=== PATIENT | female | born 1970 | race Caucasian/White ===

== ENCOUNTER 2017-10-09 08:56 | Day surgery (SDC) | payer BC, OTHER ==
[2017-10-05 10:11] LABS: HEMOGLOBIN 13.1 g/dL (12.0-15.5); MEAN CORPUSCULAR HEMOGLOBIN 28.8 pg (27.0-33.4); MEAN CORPUSCULAR HGB CONC 33.7 g/dL (32.0-36.0); MEAN CORPUSCULAR VOLUME 86 fl (80-97); PLATELET COUNT 204 10^3/uL (150-450); RED BLOOD COUNT 4.55 10^6/uL (3.72-5.28); RED CELL DISTRIBUTION WIDTH 13.6 % (11.5-14.0); WHITE BLOOD COUNT 3.8 10^3/uL (4.0-10.5)
[2017-10-05 10:12] LABS: APPEARANCE,URINE SLIGHTLY-CLOUDY; BILIRUBIN,URINE NEGATIVE (NEGATIVE); COLOR,URINE YELLOW; GLUCOSE, URINE NEGATIVE (NEGATIVE); KETONES,URINE NEGATIVE (NEGATIVE); LEUKOCYTE ESTERASE,URINE NEGATIVE (NEGATIVE); NITRITE,URINE NEGATIVE (NEGATIVE); PROTEIN,URINE NEGATIVE (NEGATIVE); URINE SPECIFIC GRAVITY 1.014; UROBILINOGEN,URINE NEGATIVE mg/dL (<2.0)
[2017-10-05 10:18] LABS: INTERNATIONAL RATION (INR) 0.91; PROTHROMBIN TIME 12.9 SEC (11.4-15.4)
[2017-10-05 10:19] LABS: PARTIAL THROMBOPLASTIN TIME 41.1 SEC (23.5-35.8)
--- NOTE | 2017-10-05 10:57 | RADIOLOGY REPORT (SQ) ---
EXAM DESCRIPTION: CHEST PA/LATERAL COMPLETED DATE/TIME: 10/05/2017 10:36 am REASON FOR STUDY: PRE OP COMPARISON: None. EXAM PARAMETERS: NUMBER OF VIEWS: two views TECHNIQUE: Digital Frontal and Lateral radiographic views of the chest acquired. RADIATION DOSE: NA LIMITATIONS: none FINDINGS: LUNGS AND PLEURA: No opacities, masses or pneumothorax. No pleural effusion. MEDIASTINUM AND HILAR STRUCTURES: No masses or contour abnormalities. HEART AND VASCULAR STRUCTURES: Heart normal size. No evidence for failure. BONES: No acute findings. HARDWARE: None in the chest. OTHER: Lap band. IMPRESSION: NO SIGNIFICANT RADIOGRAPHIC FINDING IN THE CHEST. TECHNICAL DOCUMENTATION: JOB ID: [id number] [employer]- All Rights Reserved
--- NOTE | 2017-10-05 10:59 | EKG REPORT ---
SEVERITY:- NORMAL ECG - SINUS RHYTHM : Confirmed by: Casey Preston 05-Oct-2017 10:58:19
[~2017-10-09 08:56] MED LIST: CLINDAMYCIN 600 MG/D5W RTU 600 MG/50 ML RTUPB IV PRN; LACTATED RINGERS 1000 ML IV PRN; LIDOCAINE 0.5% INJ-PF (5 MG/ML) 50 ML SDV SUBCUT PRN
[2017-10-09] MEDS ORDERED: ALBUTEROL SULFATE 0.083% NEB 2.5 MG/3 ML AMPUL NEB ONE (09:28)
[2017-10-09] MEDS ORDERED: CITRIC ACID/SODIUM CITRATE ORAL SOLN 15 ML UDCUP PO ONE (09:45)
[2017-10-09] MEDS ORDERED: LIDOCAINE 1% INJ-PF (10 MG/ML) 30 ML SDV ONE (09:58)
[2017-10-09] MEDS ORDERED: BUPIVACAINE HCL 0.5%-EPI 1:200000 INJ/PF 30 ML VIAL ONE (09:58)
[2017-10-09] MEDS ORDERED: FAMOTIDINE INJ/PF 20 MG/2 ML SDV IV ONE (10:00)
[2017-10-09] MEDS ORDERED: SODIUM BICARBONATE 10 ML IV ONE (10:00)
[2017-10-09] MEDS ORDERED: SCOPOLAMINE HYDROBROMIDE 1.5 MG PATCH.TD72 ONE (10:10)
[2017-10-09] MEDS ORDERED: MIDAZOLAM 2 MG/2 ML INJ ONE ×2 (10:45→10:52)
[2017-10-09] MEDS ORDERED: LIDOCAINE 2% INJ-PF (20 MG/ML) 10 ML AMPUL ONE (10:45)
[2017-10-09] MEDS ORDERED: KETAMINE HCL INJ 500 MG/10 ML VIAL ONE (10:45)
[2017-10-09] MEDS ORDERED: PROPOFOL INJ 200 MG/20 ML VIAL IV ONE (10:45)
[2017-10-09] MEDS ORDERED: FENTANYL CITRATE INJ/PF 100 MCG/2 ML AMPUL ONE (10:45)
[2017-10-09 15:02] VITALS: BP 105/50
== END 2017-10-09 12:25 | disposition home or self-care (01) ==
LOC: OROUT 08:56
PROVIDERS: ATTEND Pain Medicine Interventional Pain Medicine
DX: M50.13 Cervical disc disorder with radiculopathy, cervicothoracic region (principal); G89.4 Chronic pain syndrome; Z53.09 Procedure and treatment not carried out because of other contraindication; R05 Cough; M19.90 Unspecified osteoarthritis, unspecified site; E03.9 Hypothyroidism, unspecified; G43.909 Migraine, unspecified, not intractable, without status migrainosus; Z79.899 Other long term (current) drug therapy; Z88.0 Allergy status to penicillin; Z87.891 Personal history of nicotine dependence
CPT/HCPCS: 63685; 93005; 36415 ×2; 84132; 85027; 85610; 85730; 81001; 71046; 93010; 94640; J2250; J3490 ×5; J2704; S0028; 300; J3010

== ENCOUNTER 2017-11-06 09:12 | Day surgery (SDC) | payer OTHER ==
[2017-10-16 11:21] LABS: INTERNATIONAL RATION (INR) 0.92
[2017-10-16 11:22] LABS: PARTIAL THROMBOPLASTIN TIME 39.1 SEC (23.5-35.8)
[~2017-11-06 09:12] MED LIST changes: -LIDOCAINE 0.5% INJ-PF (5 MG/ML) 50 ML SDV SUBCUT PRN
[2017-11-06] MEDS ORDERED: SCOPOLAMINE HYDROBROMIDE 1.5 MG PATCH.TD72 ONE (09:38)
[2017-11-06] MEDS ORDERED: SODIUM BICARBONATE 8.4% INJ 50 MEQ/50 ML DISP.SYRIN ONE (10:07)
[2017-11-06] MEDS ORDERED: BUPIVACAINE HCL 0.5%-EPI 1:200000 INJ/PF 30 ML VIAL ONE (10:07)
[2017-11-06] MEDS ORDERED: LIDOCAINE 1% INJ-PF (10 MG/ML) 30 ML SDV ONE (10:07)
[2017-11-06] MEDS ORDERED: FENTANYL CITRATE INJ/PF 100 MCG/2 ML AMPUL ONE (11:12)
[2017-11-06] MEDS ORDERED: LIDOCAINE 2% INJ-PF (20 MG/ML) 10 ML AMPUL ONE (11:12)
[2017-11-06] MEDS ORDERED: PROPOFOL INJ 200 MG/20 ML VIAL IV ONE (11:12)
[2017-11-06] MEDS ORDERED: DIPHENHYDRAMINE HCL 50 MG/ML VIAL IV PRN (11:45)
[2017-11-06] MEDS ORDERED: OXYCODONE-ACETAMINOPHEN 5-325 MG TABLET PO PRN ×3 (11:45→13:46)
[2017-11-06] MEDS ORDERED: ONDANSETRON HCL INJ/PF 4 MG/2 ML SDV IV PRN (11:45)
[2017-11-06] MEDS ORDERED: FENTANYL CITRATE INJ/PF 100 MCG/2 ML AMPUL IV PRN ×3 (11:45)
[2017-11-06] MEDS ORDERED: MORPHINE SULFATE 10 MG/ML INJ IV PRN (11:45)
[2017-11-06] MEDS ORDERED: MEPERIDINE HCL/PF INJ 25 MG/1 ML DISP.SYRIN IV PRN (11:45)
[2017-11-06] MEDS ORDERED: PROMETHAZINE HCL INJ 25 MG/1 ML VIAL IV PRN ×2 (11:45)
[2017-11-06] MEDS: FENTANYL CITRATE INJ/PF 100 MCG/2 ML AMPUL ONE ×2 (13:23→13:31)
[2017-11-06] MEDS ORDERED: CLINDAMYCIN PHOSPHATE INJ 300 MG/2 ML SDV ONE (13:24)
[2017-11-06 15:22] VITALS: BP 123/76
--- NOTE | 2017-11-06 15:49 | RADIOLOGY REPORT (SQ) ---
EXAM DESCRIPTION: NO CHG FLUORO COMPLETE DATE/TIME: 11/06/2017 3:08 pm REASON FOR STUDY: C SPINE SPINAL STIMULATOR ASST WITH FLUORO IN OR G89.4 CHRONIC PAIN SYNDROME FINDINGS: Please see combined report for performance of procedure and radiologic supervision and int erpretation. IMPRESSION: Please see combined report for performance of procedure and radiologic supervision and i nterpretation. Reading location - IP/workstation name: [email or web address]
--- NOTE | 2017-11-06 15:49 | RADIOLOGY REPORT (SQ) ---
EXAM DESCRIPTION: CERV SP 3 VIEW OR LESS COMPLETED DATE/TIME: 11/06/2017 3:08 pm REASON FOR STUDY: C SPINE SPINAL STIMULATOR ASST WITH FLUORO IN OR G89.4 CHRONIC PAIN SYNDROME COMPARISON: None. FLUOROSCOPY TIME: 5.4 minute 20 images saved to PACS. TECHNIQUE: Intra-operative images acquired during surgical procedure to evaluate progress. NUMBER OF IMAGES: 20 image LIMITATIONS: None. FINDINGS: Fluoroscopic images were obtained during positioning of a cervical spinal stimulator. Sharona ctrodes are identified at the level of the cervical spine Please refer to the surgeon's operative rep ort for additional information IMPRESSION: IMAGE(S) OBTAINED DURING PROCEDURE. COMMENT: Quality ID 145: Final reports for procedures using fluoroscopy that document radiation exp osure indices, or exposure time and number of fluorographic images (if radiation exposure indices are not available) Please consult full operative report of the attending physician for description of the procedure. TECHNICAL DOCUMENTATION: JOB ID: [id number] [employer]- All Rights Reserved Reading location - IP/workstation name: [email or web address]
--- NOTE | 2017-11-06 16:09 | OPERATIVE REPORT E ---
Operative Report NAME: JONI LYNNE : 1970 AGE: 47Y DATE OF SURGERY: 11/06/2017 ROOM: PREOPERATIVE DIAGNOSES: 1. Cervical radiculopathy. 2. Chronic pain syndrome. POSTOPERATIVE DIAGNOSES: 1. Cervical radiculopathy. 2. Chronic pain syndrome. PROCEDURES PERFORMED: Implantation of spinal cord stimulator system with [employer] System. Three electrodes placed, and implantable pulse generator. PRIMARY SURGEON: Dr. Jr Méndez ART SALES CONSULTANT SURGEON: FERNANDEZ MENDOSA M.D. ANESTHESIA: Local with sedation. ANTIBIOTICS: 600 mL of clindamycin given perioperatively. ESTIMATED BLOOD LOSS: 20 mL. COMPLICATIONS: None. OPERATIVE FINDINGS: Three Octrode leads placed. Two are placed at the top of C1 to the bottom of C3 and a third lead was placed from the top of C6 to middle of T1. INDICATIONS: The patient is a 47-year-old female with chronic neck pain and cervical radiculopathy. The patient underwent a successful trial of spinal cord stimulation and was determined to be a candidate for permanent implantation. All risks and benefits were discussed with the patient in detail including but not limited to bleeding, bruising, infection, injury to nerves, arteries, or veins, failure to ameliorate pain, loss of bowel or bladder function, paralysis, and potentially even . The patient agreed and decided to proceed with procedure. OPERATIVE REPORT: The patient was accompanied by Anesthesia to the operative suite. She was positioned in prone position. All pressure points were checked and padded. The arms were notably tucked to the patient's side. Standard ASA lines and monitors were applied. The patient was prepped and draped in sterile fashion with from the hairline to the buttocks using chlorhexidine gluconate solution which was allowed appropriate time to dry. The patient was then draped using an Ioban drape. A timeout procedure was performed as per [facility] standards. Fluoroscopy was utilized, and notably was draped into the sterile field. Using AP fluoroscopy, the T5-T6 interspace was marked, and an incision planned around this site. Additionally, a previously marked flank incision site was noted. Both incision sites were infiltrated with 1% lidocaine solution on a 25-gauge needle. Subsequently, deeper tissues were infiltrated with 0.25% bupivacaine with 1:100,000 epinephrine. An incision was made using a 15-blade scalpel in the midline. Blunt and Bovie dissection was utilized to expose the prevertebral fascia ensuring adequate hemostasis. A 3.5 inch 25-gauge spinal needle was advanced under intermittent fluoroscopy to the numb the tract planned for epidural insertion. Then the Tuohy needle provided by the [employer] territory service representative was advanced under intermittent AP and lateral fluoroscopic guidance into the T5-T6 interspace. Loss of resistance was obtained to normal saline. Two needles were placed at this level, and leads were threaded easily into the posterior epidural space. An additional lead was placed at the T6-T7 interspace using another Tuohy needle and loss of resistance to normal saline. All 3 leads were noted to be in the posterior epidural space on lateral fluoroscopy. The leads were advanced with 2 leads notably at the top of T2 to the bottom of C3 bilaterally and 1 lead in the midline from the top of C6 to the middle of T7. At this juncture, the leads were connected, and the [employer] territory service representative in the room interrogated the leads. The patient was awakened and noted to have stimulation in all of her painful areas. The patient was then re-sedated. 0-Mersilene pursestring sutures were placed around each needle as well as an additional stay suture for the anchoring devices. This was done at each lead. Subsequently, the needles and Stylettes were removed. The anchoring device was advanced over top of the lead with fluoroscopic guidance utilized to ensure no migration of the leads. Pursestring sutures were tied and subsequently utilized as 1 of the stay sutures for the anchor. The other stay suture was then tied around the anchor. This was performed in identical fascia for all 3 leads. No migration of the leads were noted. The anchoring devices were then secured using the hex wrench on the field. Attention was then turned to the right flank where incision was made using a 15-blade scalpel. Blunt and Bovie dissection created a pocket in the right flank. At this juncture, numbing was performed with 1% buffered lidocaine from the midline incision in the back to the pocket incision. Tunneling was performed using the tunneling device provided by the VirtuOz kit, and the leads were then advanced through the tunneling device into the pocket. The leads were attached to the implantable pulse generator, and impendences were checked and noted to be excellent. The leads were secured using a hex wrench to the implantable pulse generator and then the impendences were again checked to ensure adequate contact. Both incision sites were copiously irrigated with dilute Betadine solution. At this juncture, the implantable pulse generator was fit securely into the pocket. Strain relief loops were also placed in the midline of the back. Closure ensued with 3-0 Vicryl in an interrupted fashion in both the midline and the flank incision. Skin was then closed using Dermabond, tape, and glue. This was allowed to dry, and the incision sites were dressed. The patient tolerated the procedure well and was accompanied to the PACU by Anesthesia staff in stable condition. She will have programming and will have followup at [facility] within 24 hours. DICTATING PHYSICIAN: FERNANDEZ MENDOSA M.D. [id number] PHY#: [id number] ID: [id number] JOB#: [id number] ACCT: [id number] cc:FERNANDEZ MENDOSA M.D. > MTDD
== END 2017-11-06 15:15 | disposition home or self-care (01) ==
LOC: OROUT 09:12
PROVIDERS: ATTEND Pain Medicine Interventional Pain Medicine
PROC: 00HU3MZ Insertion of Neurostimulator Lead into Spinal Canal, Percutaneous Approach (ICD-10-PCS; 2017-11-06)
PROC: 0JH70MZ Insertion of Stimulator Generator into Back Subcutaneous Tissue and Fascia, Open Approach (ICD-10-PCS; principal; 2017-11-06 11:00)
DX: G89.4 Chronic pain syndrome (principal); M54.12 Radiculopathy, cervical region; E03.9 Hypothyroidism, unspecified; Z88.0 Allergy status to penicillin; Z88.8 Allergy status to other drugs, medicaments and biological substances
CPT/HCPCS: 63685; 63650; 36415; 84132; 85610; 85730; 72040; C1820; J3490 ×5; J3010; J2704; 1936

== ENCOUNTER → 2018-01-29 | Outpatient (CLI) | payer OTHER ==
--- NOTE | 2018-01-29 15:32 | RADIOLOGY REPORT (SQ) ---
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 TECHNIQUE: Axial images acquired through the brain without and with intravenous contrast. Images re viewed with bone, brain and subdural windows. Additional sagittal and coronal reconstructions were g enerated. Images stored on PACS. All CT scanners at this facility use dose modulation, iterative reconstruction, and/or weight based d osing when appropriate to reduce radiation dose to as low as reasonably achievable (ALARA). [facility]: Dose Right [facility]: CareDose [facility]: Dose Right [facility]: Teradose 4D [facility]: Advebs CONTRAST TYPE AND DOSE: contrast/concentration: Isovue 370.00 mg/ml; Total Contrast Delivered: 50.0 ml; Total Saline Delivered: 50.0 ml RENAL FUNCTION: None required. The patient is less than 50 years old. RADIATION DOSE: CT Rad equipment meets quality standard of care and radiation dose reduction techniq ues were employed. CTDIvol: 53.2 mGy. DLP: 2194 mGy-cm.. LIMITATIONS: None. FINDINGS: VENTRICLES: Normal size and contour. CEREBRUM: No masses. No hemorrhage. No midline shift. Normal estrada/white matter differentiation. No ev idence for acute infarction. No enhancing lesions. CEREBELLUM: No masses. No hemorrhage. No alteration of density. No evidence for acute infarction. No enhancing lesions. EXTRA-AXIAL SPACES: No fluid collections. No enhancing lesions. ORBITS AND GLOBE: No intra- or extraconal masses. Normal contour of globe without masses. CALVARIUM: No fracture. PARANASAL SINUSES: No fluid or mucosal thickening. SOFT TISSUES: No mass or hematoma. OTHER: At the bottom edge of the field of view, neurostimulator electrodes are present along the dors al aspect of the cervical spine from C1 level inferiorly. IMPRESSION: NORMAL BRAIN CT WITHOUT AND WITH CONTRAST. EVIDENCE OF ACUTE STROKE: NO. TECHNICAL DOCUMENTATION: JOB ID: [id number] Quality ID # [id number]: Final reports with documentation of one or more dose reduction techniques (e.g., Au tomated exposure control, adjustment of the mA and/or kV according to patient size, use of iterative reconstruction technique) 2010 [employer]- All Rights Reserved Reading location - IP/workstation name: [email or web address]
== END ==
LOC: RAD 14:06
PROVIDERS: ATTEND Pain Medicine Interventional Pain Medicine
DX: G43.719 Chronic migraine without aura, intractable, without status migrainosus (principal)
CPT/HCPCS: 70470

== ENCOUNTER 2019-02-06 07:47 | Day surgery (SDC) | payer OTHER ==
[2019-02-06 08:28] LABS: INTERNATIONAL RATION (INR) 0.92; PROTHROMBIN TIME 12.8 SEC (11.4-15.4)
[2019-02-06 08:29] LABS: PARTIAL THROMBOPLASTIN TIME 40.3 SEC (23.5-35.8)
[2019-02-06 13:38] VITALS: BP 108/67
--- NOTE | 2019-02-06 13:59 | RADIOLOGY REPORT (SQ) ---
EXAM DESCRIPTION: MYELOGRAM LUMBAR; CT LUMBAR SPINE WITH COMPLETED DATE/TIME: 02/06/2019 11:24 am REASON FOR STUDY: OTHER INTERVERTEBRAL DISC DISPLACEMENT LUMBAR REGION, M51.26; OTHER INTERVERTEBRAL DISC DISPLACEMENT M51.26 OTHER INTERVERTEBRAL DISC DISPLACEMENT, LUMBAR REGION COMPARISON: None. FLUOROSCOPY TIME: 1 minutes 32 seconds 21 digital fluoroscopic images saved to PACS. TECHNIQUE: Fluoroscopic guided lumbar myelogram. LIMITATIONS: None. PROCEDURE: After written consent and assessment were obtained, the patient was brought into the fluo roscopy room and placed prone on the table. The patient's lower back was prepped in a sterile fashio n and an entry site was selected under live fluoroscopic guidance. The entry site was anesthetized wi th 3 mL of 1% lidocaine. The 22 gauge spinal needle was advanced through the skin and into the thecal sac at the right paracentral L2-3 level. Contrast was injected into the thecal sac. Following the procedure the needle was removed and a sterile bandage was placed of the site. CONTRAST: 11 mL Omnipaque 180. IMAGES ACQUIRED: Upright lateral flexion and extension postmyelogram images, prone, semi-erect obliqu e images with fluoroscopy to evaluate the lumbar nerve roots TECHNIQUE: After performing lumbar myelogram, axial images were acquired through the lumbar spine wi thout intravenous contrast. Images reviewed with lung, soft tissue and bone windows. Reconstructed coronal and sagittal MPR images reviewed. All images stored on PACS. All CT scanners at this facility use dose modulation, iterative reconstruction, and/or weight based d osing when appropriate to reduce radiation dose to as low as reasonably achievable (ALARA). [facility]: Dose Right [facility]: CareDose [facility]: Dose Right [facility]: Teradose 4D [facility]: [employer] FINDINGS: SEGMENTATION: Normal. No transitional anatomy. ALIGNMENT: Minimal retrolisthesis of L4 over L5 with disc space loss height. This is unchanged betwe en flexion/extension fluoroscopic images VERTEBRAL BODIES: No fractures. No dislocation. No acute findings. HARDWARE: None in the spine. There is a mid subdural and intrathecal injection. A small amount of subdural contrast is seen along the ventral aspect of the thecal sac throughout the field of view. DISCS: T12-L1: Unremarkable. No central or foraminal stenosis. L1-L2: No central or foraminal stenosis. L2-L3: No central or foraminal stenosis. Very mild ligamentum flavum thickening. L3-L4: Minimal posterior disc bulging, mild ligamentum flavum thickening is present. No significant central canal narrowing. No significant foraminal narrowing. L4-L5: Disc space loss of height is present with broad diffuse posterior disc bulge and bony spurring . Slight retrolisthesis of L4 over L5 is present, stable between flexion and extension upright fluor o images and supine lumbar spine CT sagittal reconstructions. No central canal narrowing. There is mild bilateral inferior foraminal narrowing left greater than right without definite exiting L4 nerve root impingement. L5-S1: Mild disc space loss of height with broad diffuse posterior disc bulge and bony spurring. Mil d bilateral facet and ligament hypertrophy. No central stenosis. Mild bilateral foraminal narrowing is present left greater than right without definite exiting L5 nerve root impingement Incidental finding of a hypodensity in the left kidney which is incompletely evaluated. This could r epresent a large left renal cortical cyst measuring at least 5 cm in size. Cystic neoplasm could not be excluded. Renal ultrasound is recommended for followup. Lap band prosthesis over the left anterior abdominal wall. On the right flank, a cervical neurostimu lator battery pack is present. IMPRESSION: Mild degenerative changes lower lumbar spine. No high-grade central or foraminal encroa chment. Incidental finding of an incompletely evaluated hypodensity in the left midpole kidney for which dedi cated renal ultrasound is recommended for followup COMMENT: Patient medication list reviewed: Yes- Quality ID# 130:Eligible professional attests to doc umenting in the medical record they obtained, updated, or reviewed the patient's current medications. TECHNICAL DOCUMENTATION: JOB ID: [id number] Quality ID # 436: Final reports with documentation of one or more dose reduction techniques (e.g., Au tomated exposure control, adjustment of the mA and/or kV according to patient size, use of iterative reconstruction technique) 2010 [email or web address]- All Rights Reserved Reading location - IP/workstation name: [email or web address]
== END 2019-02-06 13:35 | disposition home or self-care (01) ==
LOC: RAD 07:47
PROVIDERS: ATTEND Pain Medicine Interventional Pain Medicine
DX: M51.26 Other intervertebral disc displacement, lumbar region (principal)
CPT/HCPCS: 36415; 72132; 72265; 85610; 85730

== ENCOUNTER 2019-09-09 06:15 | Day surgery (SDC) | payer OTHER ==
[2019-09-09] MEDS ORDERED: MIDAZOLAM 2 MG/2 ML INJ ONE (06:41)
[2019-09-09] MEDS ORDERED: PROPOFOL INJ 200 MG/20 ML VIAL IV ONE (06:41)
[2019-09-09] MEDS ORDERED: FENTANYL CITRATE INJ/PF 100 MCG/2 ML AMPUL ONE (06:41)
[2019-09-09] MEDS ORDERED: BUPIVACAINE HCL 0.25 % INJ/PF (2.5 MG/1 ML) 30 ML VIAL ONE (07:35)
[2019-09-09] MEDS ORDERED: LIDOCAINE 1% INJ-PF (10 MG/ML) 30 ML SDV ONE (07:35)
[2019-09-09] MEDS ORDERED: EPINEPHRINE INJ/PF 1 MG/1 ML AMPULE ONE (07:35)
[2019-09-09] MEDS ORDERED: SODIUM BICARBONATE 4.2% INJ (2.5 MEQ/5 ML) VIAL ONE (07:36)
[2019-09-09] MEDS ORDERED: SCOPOLAMINE HYDROBROMIDE 1.5 MG PATCH.TD72 ONE (07:45)
[2019-09-09] MEDS ORDERED: KETAMINE HCL INJ 500 MG/10 ML VIAL ONE (08:10)
[2019-09-09] MEDS ORDERED: DEXMEDETOMIDINE INJ 80 MCG/20 ML VIAL IV ONE (08:10)
[2019-09-09] MEDS ORDERED: CEFAZOLIN INJ 1 GM VIAL ONE ×2 (08:17→10:14)
[2019-09-09] MEDS ORDERED: FENTANYL CITRATE INJ/PF 100 MCG/2 ML AMPUL IV PRN ×2 (08:56)
[2019-09-09] MEDS ORDERED: PROMETHAZINE HCL INJ 25 MG/1 ML VIAL IV PRN (08:56)
[2019-09-09] MEDS ORDERED: DIPHENHYDRAMINE HCL 50 MG/ML VIAL IV PRN (08:56)
--- NOTE | 2019-09-09 09:44 | Operative Report ---
Operative Report DATE OF SURGERY: 09/09/19 PREOPERATIVE DIAGNOSIS: Chronic pain syndrome. Lumbar radiculopathy POSTOPERATIVE DIAGNOSIS: Same OPERATION: 1. Percutaneous implantation dual octrode spinal cord stimulator and implantable pulse generator. 2. Programming spinal cord stimulator SURGEON: JR PARMAR DIGITAL MEDIA MANAGER: PAULINE DIXON ANESTHESIA: LMAC TISSUE REMOVED OR ALTERED: none COMPLICATIONS: none ESTIMATED BLOOD LOSS: 5mL INTRAOPERATIVE FINDINGS: Dual octrodes placed from mid body T7 to bottom of T8 vertebral body PROCEDURE: Date of Surgery: 2019 Preoperative Diagnosis: Lumbar radiculopathy Postoperative Diagnosis:Same Procedure: SCS Electrode Placement with Impulse Generator Surgeon: Dr. Jr Méndez [employer] Development Lead: Dr. Pauline Dixon Anesthesia: LMAC Complications: None Procedure Detail: After obtaining informed consent and advising the patient of the risks and benefits, including serious neurological injury, bleeding and infection, allergic reaction and , the patient was taken to the operating room. After discussion with the patient, a suitable site was marked for the impulse generator pocket. The patient was then placed comfortably in the prone position. Comfort was assessed visually and verbally. The patient was then prepped with chlorhexidine with a suitable drying time prior to drapping. The patient was evaluated under fluoroscopy in the AP view. An adequate space was found at T12-L1 interspace and a midline incision site was marked to allow needle entry. The skin overlying both the midline and IPG sites were anesthetized with 1% lidocaine with bicarbonate, followed by bupivacaine 0.25% with epinephrine. Beginning at the midline incision, Sharp and blunt dissection were performed down to the underlying fascia. Using a left paramedian approach, a 14 gauge Tuohy needle was placed in the epidural space at T12-L1 using a loss or resistance to saline technique. A second needle using a right paramedian approach was placed in the epidural space in the same manner. An electrode was inserted through each needle and advanced under serial fluoroscopy views to the middle of T7 on the right and left. After placement, lateral imaging was obtained for appropriate posterior position in the epidural space. The leads were then tested and appropriate stimulation was found after discussion with the patient. The leads were then secured using 0 Mersilene pursetrings with anchors in place. The anchors were then sututred in place. The needles were remove sequentially under fluoroscopic guidance. The anchors and pursestrings were secured using a hex wrench. While lead positioning was occurring, Dr. Martinez was assisting creating the pocket for the pulse generator. As soon as the pocket was made, proper hemostasis was confirmed. The skin between the midline and IPG pocket was then anesthetized with 1% lidocaine. A tunneling tool was then utilized to bring the midline electrodes to the IPG pocket. Both sites were then inspected with appropriate hemostasis. The wires were easily placed in the midline, stitched to the pocket, connected to the pulse generator which was then tested with appropriate communication. All connections were then secured and confirmed. The generator was connected to the electrodes. All hex nuts were secured. The generator was placed in the pocket and impedance was tested and was felt to be satisfactory. Good connectivity with the new generator was obtained. The wounds were then copiously irrigated with Betadine containing irrigation solution. The sites were then closed with interrupted vertical mattress sutures with 2-0 Polysorb. The midline incision was closed in 2 layers, while the IPG site was closed in one. The skin came together nicely. The region was cleansed again followed by placement of dermabond tape and cement. When this was dry, suitable tegaderm sponge dressings were placed. The patient was then taken back to PACU for postoperative care and monitoring.
[2019-09-09] MEDS ORDERED: ONDANSETRON HCL INJ/PF 4 MG/2 ML SDV IV PRN (10:21)
[2019-09-09] MEDS ORDERED: OXYCODONE-ACETAMINOPHEN 5-325 MG TABLET PO PRN (10:21)
[2019-09-09 12:10] VITALS: BP 92/51
--- NOTE | 2019-09-09 15:25 | RADIOLOGY REPORT (SQ) ---
EXAM DESCRIPTION: THORACOLUMBAR SPINE AP/LAT; NO CHG FLUORO COMPLETED DATE/TIME: 09/09/2019 9:46 am REASON FOR STUDY: SPINAL STIMULATOR PLCMT ASST WITH FLUORO IN OR G89.4 CHRONIC PAIN SYNDROME M96.1 POSTLAMINECTOMY SYNDROME, NOT ELSEWHERE CLASSIFIED M54.16 RADICULOPATHY, LUMBAR REGION COMPARISON: None. FLUOROSCOPY TIME: 2.8 minutes. 16 images saved to PACS. TECHNIQUE: Intra-operative images acquired during surgical procedure to evaluate progress. NUMBER OF IMAGES: 16 images. LIMITATIONS: None. FINDINGS: Images of the spine acquired during placement of electrodes. IMPRESSION: IMAGE(S) OBTAINED DURING PROCEDURE. COMMENT: Quality ID 145: Final reports for procedures using fluoroscopy that document radiation exp osure indices, or exposure time and number of fluorographic images (if radiation exposure indices are not available) Please consult full operative report of the attending physician for description of the procedure. TECHNICAL DOCUMENTATION: JOB ID: [id number] [employer]- All Rights Reserved Reading location - IP/workstation name: [email or web address]
--- NOTE | 2019-09-09 15:25 | RADIOLOGY REPORT (SQ) ---
EXAM DESCRIPTION: THORACOLUMBAR SPINE AP/LAT; NO CHG FLUORO COMPLETED DATE/TIME: 09/09/2019 9:46 am REASON FOR STUDY: SPINAL STIMULATOR PLCMT ASST WITH FLUORO IN OR G89.4 CHRONIC PAIN SYNDROME M96.1 POSTLAMINECTOMY SYNDROME, NOT ELSEWHERE CLASSIFIED M54.16 RADICULOPATHY, LUMBAR REGION COMPARISON: None. FLUOROSCOPY TIME: 2.8 minutes. 16 images saved to PACS. TECHNIQUE: Intra-operative images acquired during surgical procedure to evaluate progress. NUMBER OF IMAGES: 16 images. LIMITATIONS: None. FINDINGS: Images of the spine acquired during placement of electrodes. IMPRESSION: IMAGE(S) OBTAINED DURING PROCEDURE. COMMENT: Quality ID 145: Final reports for procedures using fluoroscopy that document radiation exp osure indices, or exposure time and number of fluorographic images (if radiation exposure indices are not available) Please consult full operative report of the attending physician for description of the procedure. TECHNICAL DOCUMENTATION: JOB ID: [id number] [employer]- All Rights Reserved Reading location - IP/workstation name: [email or web address]
== END 2019-09-09 11:40 | disposition home or self-care (01) ==
LOC: OROUT 06:15
PROVIDERS: ATTEND Pain Medicine Interventional Pain Medicine
DX: G89.4 Chronic pain syndrome (principal); M96.1 Postlaminectomy syndrome, not elsewhere classified; M54.16 Radiculopathy, lumbar region; Z88.0 Allergy status to penicillin; Z88.8 Allergy status to other drugs, medicaments and biological substances; E07.9 Disorder of thyroid, unspecified
CPT/HCPCS: 36415; 84132; 72080; 63685; 63650; J2250; J0690; J0171; J3490 ×4; J2704; J3010